=== PATIENT | male | born 1955 | race African-American/Black ===

== ENCOUNTER 2017-04-04 05:28 | Emergency (ER) | payer MEDICAID ==
[~2017-04-04] VITALS: Ht 185.4 cm; Wt 102.1 kg
[2017-04-04] VITALS (8 sets, daily range): BP systolic 123–150; BP diastolic 80–91
[2017-04-04] MEDS ORDERED: Haloperidol 5mg/ml Inj IM ONE (05:45)
[2017-04-04] MEDS ORDERED: MIRTAZAPINE15 MG ORAL (05:56)
[2017-04-04] MEDS ORDERED: NORVASC2.5 MG ORAL (05:56)
[2017-04-04] MEDS ORDERED: DEPAKOTE250 MG PO (05:56)
--- NOTE | 2017-04-04 06:01 | Emergency Room Report ---
History of Present Illness General Chief Complaint: Behavioral Complaint Source: Patient, EMS Present Illness HPI Is a 61-year-old male with a psychiatric history. He was just released from [facility]. His last psychiatric admission was 2 weeks ago. He was placed on Remeron and Depakote. He presents with chief complaint of suicidal thoughts and homicidal thought. He called 911 saying that he wants to jump in front of cars to kill himself. He admits to using cocaine couple days ago. Also been drinking. Said that he is hearing voices. Police placed him on a 5150 psychiatric hold. Allergies: Coded Allergies: No Known Allergies (Unverified , 04/04/17) Patient History Past Medical History: see triage record, old chart reviewed, HTN, psych hx Past Surgical History: other Pertinent Family History: none Social History: Reports: smoking, alcohol use, drug use Immunizations: other Reviewed Nursing Documentation: PMH: Agreed, PSxH: Agreed Nursing Documentation-PMH Past Medical History: No History, Except For Hx Hypertension: Yes History Of Psychiatric Problem: Yes - Depression, Bipolar, Schizophrenia Hx Neurological Problems: No - Gonorrhea Review of Systems Eye: Denies: eye pain, blurred vision ENT: Denies: ear pain, nose congestion, throat swelling Respiratory: Denies: cough, shortness of breath Cardiovascular: Denies: chest pain, palpitations Gastrointestinal: Denies: abdominal pain, diarrhea, nausea, vomiting Musculoskeletal: Denies: back pain, joint pain Skin: Denies: rash Psychiatric: Reports: prior hx, SI, HI, hallucinations Neurological: Denies: headache, numbness Endocrine: Denies: increased thirst, increased urine Hematologic/Lymphatic: Denies: easy bruising All Other Systems: negative except mentioned in HPI Physical Exam Vital Signs Date Time Temp Pulse Resp B/P (MAP) Pulse Ox O2 Delivery O2 Flow Rate FiO2 04/04/17 05:30 98.5 103 17 158/98 99 Room Air 98.4 vitals with high blood pressure Sp02 EP Interpretation: reviewed, normal General Appearance: well appearing, no apparent distress, alert Head: normocephalic, atraumatic Eyes: bilateral eye PERRL, bilateral eye EOMI ENT: hearing grossly normal, normal pharynx Neck: full range of motion, supple, no meningismus Respiratory: chest non-tender, lungs clear, normal breath sounds Cardiovascular #1: regular rate, rhythm, no murmur Gastrointestinal: normal bowel sounds, non tender, no mass, no organomegaly, no bruit, non-distended Musculoskeletal: back normal, gait/station normal, normal range of motion Neurologic: normal inspection, alert, oriented x3 Psychiatric: anxious, other Suicide Risk Assessment: Suicidal Ideation: Yes Had intent to initiate attempt: Yes Pt's plan for suicide attempt: Yes Has means to complete attempt: Yes Skin: warm/dry Medical Decision Making Diagnostic Impression: Primary Impression: Psychosis Qualified Codes: F23 - Brief psychotic disorder Additional Impressions: Suicidal ideation Cocaine abuse ER Course Patient suicidal probably secondary to drug abuse and psychosis. Patient is currently on a 5150 hold. Would check labs and is unremarkable, will medically clear for psychiatric evaluation. I will sign this patient out to Dr. Saini for final disposition. Last Vital Signs Date Time Temp Pulse Resp B/P (MAP) Pulse Ox O2 Delivery O2 Flow Rate FiO2 04/04/17 05:30 98.5 103 17 158/98 99 Room Air 98.4 Status: improved Disposition: XFER TO PSYCH HOSP/UNIT Condition: Stable GURJIT PENA M.D. Apr 04, 2017 06:01
[2017-04-04 06:10] LABS: APPEARANCE,URINE CLEAR; BILIRUBIN, URINE NEGATIVE (NEGATIVE); GLUCOSE, URINE (UA) NEGATIVE (NEGATIVE); KETONES,URINE NEGATIVE (NEGATIVE); LEUKOCYTE ESTERASE ,URINE NEGATIVE (NEGATIVE); NITRITE,URINE NEGATIVE (NEGATIVE); PH,URINE 5 (4.5-8.0); PROTEIN,URINE 2+ (NEGATIVE); UROBILINOGEN,URINE 1 MG/DL (0.0-1.0)
[2017-04-04 06:11] LABS: COLOR,URINE YELLOW
[2017-04-04 06:18] LABS: BASOPHILS % (AUTO) 2.3 % (0.0-2.0); EOSINOPHILS % (AUTO) 0.5 % (0.0-3.0); HEMATOCRIT 48.9 % (42.0-52.0); LYMPHOCYTES % (AUTO) 24.8 % (20.0-45.0); MEAN CORPUSCULAR VOLUME 83 FL (80-99); MONOCYTES % (AUTO) 13.2 % (1.0-10.0); NEUTROPHILS % (AUTO) 59.2 % (45.0-75.0); PLATELET COUNT 295 K/UL (150-450); RED BLOOD COUNT 5.86 M/UL (4.70-6.10); RED CELL DISTRIBUTION WIDTH 12.9 % (11.6-14.8); WHITE BLOOD COUNT 6.3 K/UL (4.8-10.8)
[2017-04-04 06:20] LABS: ANION GAP 7 mmol/L (5-15); BLOOD UREA NITROGEN 18 mg/dL (7-18); CALCIUM 9.4 MG/DL (8.5-10.1); CARBON DIOXIDE 32 MMOL/L (21-32); CHLORIDE 101 MMOL/L (98-107); CREATININE 1.4 MG/DL (0.55-1.30); POTASSIUM 3.4 MMOL/L (3.5-5.1); SODIUM 140 MMOL/L (136-145)
[2017-04-04 06:26] LABS: ALANINE AMINOTRANSFERASE 33 U/L (12-78); ALBUMIN 4.2 G/DL (3.4-5.0); ALBUMIN/GLOBULIN RATIO 0.9 (1.0-2.7); ALKALINE PHOSPHATASE 91 U/L (46-116); ASPARTATE AMINO TRANSFERASE 39 U/L (15-37); BILIRUBIN,TOTAL 0.6 MG/DL (0.2-1.0)
[2017-04-05 01:27] VITALS: BP 137/86
[2017-04-05 03:54] VITALS: BP 143/85
[2017-04-05 05:06] VITALS: BP 139/87
[2017-04-05 08:03] VITALS: BP 129/72
[2017-04-05 11:20] VITALS: BP 157/95
[2017-04-05 11:36] VITALS: BP 157/95
== END 2017-04-05 12:06 ==
LOC: EDBD 05:28 → EMR 06:07
DX: F23 Brief psychotic disorder (principal); R45.851 Suicidal ideations; F14.10 Cocaine abuse, uncomplicated; I10 Essential (primary) hypertension; F31.9 Bipolar disorder, unspecified; F17.200 Nicotine dependence, unspecified, uncomplicated
CPT/HCPCS: 36415; 80053; 80307; 80329; 81003; 85025; 96372; 99285; J1630

== ENCOUNTER 2017-05-03 23:04 | Emergency (ER) | payer MEDICAID, OTHER ==
[~2017-05-03] VITALS: Ht 185.4 cm; Wt 99.3 kg
[~2017-05-03 23:04] MED LIST: DEPAKOTE250 MG PO; MIRTAZAPINE15 MG ORAL; NORVASC2.5 MG ORAL
[2017-05-03 23:15] VITALS: BP 140/89
[2017-05-04 01:02] VITALS: BP 133/86
[2017-05-04 01:08] LABS: BASOPHILS % (AUTO) 1.8 % (0.0-2.0); EOSINOPHILS % (AUTO) 2.2 % (0.0-3.0); HEMATOCRIT 46.6 % (42.0-52.0); HEMOGLOBIN 15.3 G/DL (14.2-18.0); LYMPHOCYTES % (AUTO) 34.6 % (20.0-45.0); MEAN CORPUSCULAR VOLUME 82 FL (80-99); MONOCYTES % (AUTO) 10.3 % (1.0-10.0); NEUTROPHILS % (AUTO) 51.1 % (45.0-75.0); PLATELET COUNT 249 K/UL (150-450); RED BLOOD COUNT 5.68 M/UL (4.70-6.10); RED CELL DISTRIBUTION WIDTH 12.3 % (11.6-14.8); WHITE BLOOD COUNT 5.3 K/UL (4.8-10.8)
[2017-05-04 01:16] LABS: ANION GAP 8 mmol/L (5-15); BLOOD UREA NITROGEN 17 mg/dL (7-18); CALCIUM 8.9 MG/DL (8.5-10.1); CARBON DIOXIDE 29 MMOL/L (21-32); CHLORIDE 101 MMOL/L (98-107); CREATININE 1.3 MG/DL (0.55-1.30); POTASSIUM 3.4 MMOL/L (3.5-5.1); SODIUM 137 MMOL/L (136-145)
[2017-05-04 01:21] LABS: ALANINE AMINOTRANSFERASE 32 U/L (12-78); ALBUMIN 3.6 G/DL (3.4-5.0); ALBUMIN/GLOBULIN RATIO 0.9 (1.0-2.7); ALKALINE PHOSPHATASE 80 U/L (46-116); ASPARTATE AMINO TRANSFERASE 34 U/L (15-37); BILIRUBIN,TOTAL 0.6 MG/DL (0.2-1.0)
[2017-05-04] MEDS ORDERED: Lidocaine 1% MPF 10mg/ml 5ml INJ ONE (01:45)
[2017-05-04] MEDS ORDERED: Azithromycin 250mg tab ORAL ONE (01:45)
[2017-05-04] MEDS ORDERED: DEPAKOTE250 MG PO (01:58)
[2017-05-04] MEDS ORDERED: MIRTAZAPINE15 MG ORAL (01:58)
[2017-05-04 02:00] VITALS: BP 138/88
[2017-05-04 02:10] VITALS: BP 138/88
--- NOTE | 2017-05-04 22:04 | Emergency Room Report ---
History of Present Illness General Chief Complaint: Behavioral Complaint Source: Patient, EMS Present Illness HPI 61-year-old male presents ED for evaluation. Brought in by EMS. Patient states he is hearing voices. History of schizophrenia. States he takes Remeron and Depakote. States he has not had his medication in 5 days now. Currently denies any suicidal or homicidal ideation. Denies drug use. No other aggravating relieving factors. Denies any other associated symptoms Allergies: Coded Allergies: No Known Allergies (Unverified , 04/04/17) Patient History Past Medical History: psych hx Past Surgical History: none Pertinent Family History: none Social History: Denies: smoking, alcohol use, drug use Immunizations: UTD Reviewed Nursing Documentation: PMH: Agreed, PSxH: Agreed Nursing Documentation-PMH Hx Hypertension: Yes History Of Psychiatric Problem: Yes - schizophrenia Hx Neurological Problems: No - Gonorrhea Review of Systems All Other Systems: negative except mentioned in HPI Physical Exam Vital Signs Date Time Temp Pulse Resp B/P (MAP) Pulse Ox O2 Delivery O2 Flow Rate FiO2 05/03/17 23:04 98.0 94 18 148/92 98 Room Air 98.1 Sp02 EP Interpretation: reviewed, normal General Appearance: no apparent distress, alert, GCS 15, non-toxic Head: normocephalic, atraumatic Eyes: bilateral eye normal inspection, bilateral eye PERRL ENT: hearing grossly normal, normal pharynx, no angioedema, normal voice Neck: full range of motion, supple/symm/no masses Respiratory: chest non-tender, lungs clear, normal breath sounds, speaking full sentences Cardiovascular #1: regular rate, rhythm, no edema Cardiovascular #2: 2+ carotid (R), 2+ carotid (L), 2+ radial (R), 2+ radial (L) , 2+ dorsalis pedis (R), 2+ dorsalis pedis (L) Gastrointestinal: normal bowel sounds, non tender, soft, non-distended, no guarding, no rebound Rectal: deferred Genitourinary: normal inspection, no CVA tenderness Musculoskeletal: back normal, gait/station normal, normal range of motion, non- tender Neurologic: alert, oriented x3, responsive, motor strength/tone normal, sensory intact, speech normal Psychiatric: memory normal, no suicidal/homicidal ideation, anxious Reflexes: 3+ bicep (R), 3+ bicep (L), 3+ tricep (R), 3+ tricep (L), 3+ knee (R) , 3+ knee (L) Skin: normal color, no rash, warm/dry, well hydrated Lymphatic: no adenopathy Medical Decision Making Diagnostic Impression: Primary Impression: Behavioral change Additional Impression: Substance abuse ER Course Hospital Course 61-year-old male presents ED hearing voices. History of schizophrenia Differential diagnoses include: Psychosis, EtOH, drug abuse Clinical course patient placed on stretcher. On last inserter. After initial history and physical ordered labs Labs reviewed-electrolytes okay, no leukocytosis, hemoglobin/hematocrit stable, tox panel + for multilple substances Patient given dose of his Depakote and Remeron. Patient observed. No evidence of suicidal or homicidal ideation. Hallucinations due to drug abuse Patient is safe for discharge i. I feel this is a highly complex case requiring extensive working including EKG/Rhythm strip, Xray/CT/US, Blood/urine lab work, repeat exams while in ED, and administration of strong opiates/narcotics for pain control, admission to hospital or close patient follow up. Diagnosis - behavioral change, substance abuse Stable and discharged to home with Rx Remeron, Depakote. Followup with PMD. Return to ED if symptoms recur or worsen Labs Test 05/04/17 00:55 05/04/17 01:40 White Blood Count 5.3 K/UL (4.8-10.8) Red Blood Count 5.68 M/UL (4.70-6.10) Hemoglobin 15.3 G/DL (14.2-18.0) Hematocrit 46.6 % (42.0-52.0) Mean Corpuscular Volume 82 FL (80-99) Mean Corpuscular Hemoglobin 26.9 PG (27.0-31.0) Mean Corpuscular Hemoglobin Concent 32.7 G/DL (32.0-36.0) Red Cell Distribution Width 12.3 % (11.6-14.8) Platelet Count 249 K/UL (150-450) Mean Platelet Volume 6.6 FL (6.5-10.1) Neutrophils (%) (Auto) 51.1 % (45.0-75.0) Lymphocytes (%) (Auto) 34.6 % (20.0-45.0) Monocytes (%) (Auto) 10.3 % (1.0-10.0) Eosinophils (%) (Auto) 2.2 % (0.0-3.0) Basophils (%) (Auto) 1.8 % (0.0-2.0) Sodium Level 137 MMOL/L (136-145) Potassium Level 3.4 MMOL/L (3.5-5.1) Chloride Level 101 MMOL/L (98-107) Carbon Dioxide Level 29 MMOL/L (21-32) Anion Gap 8 mmol/L (5-15) Blood Urea Nitrogen 17 mg/dL (7-18) Creatinine 1.3 MG/DL (0.55-1.30) Estimat Glomerular Filtration Rate > 60 mL/min (>60) Glucose Level 109 MG/DL (74-106) Calcium Level 8.9 MG/DL (8.5-10.1) Total Bilirubin 0.6 MG/DL (0.2-1.0) Aspartate Amino Transf (AST/SGOT) 34 U/L (15-37) Alanine Aminotransferase (ALT/SGPT) 32 U/L (12-78) Alkaline Phosphatase 80 U/L (46-116) Total Protein 7.7 G/DL (6.4-8.2) Albumin 3.6 G/DL (3.4-5.0) Globulin 4.1 g/dL Albumin/Globulin Ratio 0.9 (1.0-2.7) Salicylates Level 0.2 ug/mL (2.8-20) Acetaminophen Level < 2 MCG/ML (10-30) Serum Alcohol < 3 mg/dL Urine Opiates Screen Negative (NEGATIVE) Urine Barbiturates Screen Negative (NEGATIVE) Phencyclidine (PCP) Screen Negative (NEGATIVE) Urine Amphetamines Screen Positive (NEGATIVE) Urine Benzodiazepines Screen Negative (NEGATIVE) Urine Cocaine Screen Positive (NEGATIVE) Urine Marijuana (THC) Screen Positive (NEGATIVE) Last Vital Signs Date Time Temp Pulse Resp B/P (MAP) Pulse Ox O2 Delivery O2 Flow Rate FiO2 05/04/17 02:10 98.2 77 16 138/88 99 Room Air 98.2 Status: improved Disposition: HOME, SELF-CARE Condition: Stable Scripts Divalproex Sodium* (DEPAKOTE*) 250 Mg Tablet.dr 250 MG PO Q12HR for 30 Days, TAB Prov: ALYSON DIOP M.D. 05/04/17 Mirtazapine* (REMERON*) 15 Mg Tablet 15 MG ORAL BEDTIME, #30 TAB Prov: ALYSON DIOP M.D. 05/04/17 Referrals: [facility],REFERRING (PCP) Patient Instructions: Depression, Adult, [id number] ALYSON DIOP M.D. May 04, 2017 22:04
== END 2017-05-04 02:45 | disposition home or self-care (01) ==
LOC: EDBD 23:04 → EMR 05-04 02:30
DX: F91.9 Conduct disorder, unspecified (principal); I10 Essential (primary) hypertension; F20.9 Schizophrenia, unspecified; F19.10 Other psychoactive substance abuse, uncomplicated
CPT/HCPCS: 36415; 80053; 80307; 80329; 85025; 96372; 99284; J0696; Q0144